=== PATIENT | female | born 1995 | race Caucasian/White ===

== ENCOUNTER 2024-03-31 06:15 | Emergency (ER) | payer OTHER, SELFPAY ==
--- NOTE | ~2024-03-31 | CT_ITS ---
EXAMINATION: CT ABDOMEN PELVIS WITHOUT IV CONTRAST HISTORY: flank pain COMPARISON: There are no prior studies for comparison. TECHNIQUE: CT scan of the abdomen and pelvis was performed without contrast using standard departmental protocol. Coronal and sagittal reformatted images were generated and reviewed. Oral contrast material was not administered per department protocol. This CT exam was performed with one or more of the following dose reduction techniques: automated exposure control, adjustment of the mA and/or kV according to patient size, use of iterative reconstruction technique. DLP: 645 mGy-cm FINDINGS: LOWER CHEST: The visualized lung bases are clear. There is no pleural effusion. CARDIOVASCULATURE: The heart is normal in size. There is no pericardial effusion. LIVER: The liver is normal in size and contour. The liver demonstrates diffusely decreased attenuation, consistent with steatosis. GALLBLADDER / BILE DUCTS: The gallbladder is unremarkable. There is no intra or extrahepatic biliary ductal dilatation. SPLEEN: The spleen is normal in size and has an unremarkable unenhanced appearance. PANCREAS: The pancreas has an unremarkable unenhanced appearance. ADRENAL GLANDS: Unremarkable. KIDNEYS/RETROPERITONEUM: No renal calculi are identified. There is mild right hydroureteronephrosis to the level of a 2 mm UVJ calculus.. LYMPH NODES: No retroperitoneal lymphadenopathy is identified in the abdomen or pelvis. VASCULATURE: The abdominal aorta is normal in caliber. MESENTERY/PERITONEUM: No free fluid. No masses. There is no free intraperitoneal gas. STOMACH: There is a small hiatal hernia. The remainder of the stomach is unremarkable. SMALL BOWEL: The small bowel is normal in caliber. COLON: The colon is unremarkable. APPENDIX: Normal. URINARY BLADDER/PELVIC ORGANS: The urinary bladder is collapsed, limiting evaluation. The uterus and ovaries have an unremarkable unenhanced appearance. BONES / SOFT TISSUES: No suspicious bony or soft tissue abnormalities. CT/CT abdomen pelvis wo IV con IMPRESSION: Mild right hydroureteronephrosis to the level of a 2 mm UVJ calculus. Electronically signed by: Pb Ricci MD 03/31/2024 08:45 AM [facility]
[2024-03-31 06:29] VITALS: BP 135/91; PULSE 86; RESP 18; TEMP 36.8; O2SAT 96; BMI 34.8
--- NOTE | 2024-03-31 06:43 | MHC.EDTECH ---
Patient brought into triage area,labs drawn and sent to lab,pt attempted to give a urine sample but was unable to at this time
[2024-03-31 06:50] LABS: MANUAL DIFF FLAG NO
--- NOTE | 2024-03-31 06:51 | ED_ITS ---
HPI - Female Genitourinary General Chief complaint: Urogenital-Female Stated complaint: kidney stones? Time Seen by Provider: 03/31/24 06:50 Source: patient and family (patient's mother) Mode of arrival: ambulatory Limitations: no limitations History of Present Illness ED Provider: Eliza Martinez PA-C HPI Narrative: Patient is a 28 year old assigned female at with a history of kidney stones presenting to the emergency department today with abdominal pain, nausea, and vomiting. Patient states that she has been having right sided low back and abdominal pain for the last few hours with nausea and vomiting. Patient denies any dizziness, lightheadedness, fever, chills, blurry vision, double vision, loss of vision, chest pain, difficulty breathing, shortness of breath, night sweats, pain with urination, increased urinary frequency, increased urinary urgency, blood in her urine or stool, syncope or a near syncopal episode, recent trauma or falls, bowel incontinence, bladder incontinence, or any other complaints at this time. Related Data Previous Rx's ?Medication ?Instructions ?Recorded naproxen 500 mg tablet 500 mg PO BID 7 days #14 tabs 03/31/24 prednisone 20 mg tablet 20 mg PO DAILY 7 days #7 tabs 03/31/24 tamsulosin 0.4 mg capsule 0.4 mg PO DAILY #7 caps 03/31/24 Allergies Allergy/AdvReac Type Severity Reaction Status Date / Time No Known Allergies Allergy Unverified 03/31/24 06:32 Review of Systems 2 Constitutional: Constitutional: Reports no additional constitutional complaints, Denies chills, Denies fever(s) and Denies night sweats Eyes: Eyes: Reports no additional eye complaints, Denies blurry vision, Denies change in vision, Denies diplopia, Denies eye discharge, Denies loss of vision and Denies eye pain ENT: Denies dizziness Cardiovascular: Cardiovascular: Reports no additional cardiovascular complaints, Denies chest pain, Denies lightheadedness, Denies Loss of Consciousness and Denies dyspnea Respiratory: Respiratory: Reports no additional respiratory complaints and Denies dyspnea Gastrointestinal: Gastrointestinal: Reports no additional gastrointestinal complaints, Reports abdominal pain, Denies melena, Denies hematochezia, Denies change in bowel habits, Denies change in stool character, Reports nausea and Reports vomiting Genitourinary: Genitourinary: Denies hematuria, Denies urinary frequency, Denies dysuria, Denies urinary incontinence, Denies urinary hesitancy and Denies urinary urgency Musculoskeletal: Musculoskeletal: Reports no additional musculoskeletal complaints, Reports back pain, Denies numbness and Denies tingling Neurologic: Denies dizziness, Denies loss of vision, Denies numbness and Denies tingling Psychiatric: Psychiatric: Reports no additional psychiatric complaints Endocrine: Endocrine: Reports no additional endocrine complaints Hematologic/Lymphatic: Hematologic/Lymphatic: Reports no additional hematologic/lymphatic complaints Allergic/Immunologic: Allergic/Immunologic: Reports no additional allergic/immunologic complaints PMFSH Past Medical History Attestation statement: The following information was validated with the patient. (patient's information was validated with the patient's mother) Source: old records reviewed, obtained from family (patient's mother provided additional history and confirmed the history provided by the patient) and nursing notes reviewed Physical Exam 2 Vital Signs: Vital Signs: Last Vital Signs Temp 98.2 F 03/31/24 10:12 Pulse 62 03/31/24 10:12 Resp 18 03/31/24 10:12 BP 128/85 03/31/24 10:12 Pulse Ox 98 03/31/24 10:12 O2 Del Method Room Air 03/31/24 10:12 BMI result Body Mass Index 34.8 Const: General: cooperative, no acute distress, alert and awake Nutritional Appearance: well nourished Orientation/consciousness: patient oriented x3 Limitations: no limitations HEENT: Head: Yes normal to inspection and Yes atraumatic Ears: hearing grossly normal bilaterally and external ears normal General nose exam: Normal external nose present, no nasal discharge noted and no epistaxis Face and sinus: Yes normal facial exam, No abrasion and No laceration Mouth: Normal oral and palatal mucosa present, no drooling and no muffled voice Eyes: General: appearance normal, both eyes and all related structures P eriorbital: periorbital findings normal Eyelids: Yes eyelids normal C onjunctivae: conjunctivae normal Pupils: Equal, round and reactive pupils present EOM: EOMs intact bilaterally Neck: Neck: Yes normal visual inspection, Yes full ROM and Yes no lymphadenopathy Chest: Chest palpation & inspection: normal inspection of the chest Resp: Effort & Inspection: normal respiratory effort and able to speak in complete sentences GI: Inspection: Yes normal to inspection Neuro: General: patient oriented x3 and moves all extremities Cranial nerves: Yes Equal, round and reactive pupils present Cognition (Neuro): n ormal cognition Extrem: General: Yes normal to inspection, Yes full ROM and Yes capillary refill normal Psych: Appearance: grossly normal Mental Status: mental status grossly normal Affect: normal affect Attitude: cooperative Thought process: N ormal thought process present Thought content: Normal thought content present Insight: Good insight present (Psych) Medications Administered Discontinued Medications Generic Name Dose Route Start Last Admin Trade Name Ministerio PRN Reason Stop Dose Admin Sodium Chloride 1,000 mls @ 999 mls/hr 03/31/24 07:30 03/31/24 08:47 Ns IV 03/31/24 08:30 Infused .Q1H1M JAZMÍN Infusion Acetaminophen 1,000 mg in 100 mls @ 400 mls/hr 03/31/24 07:20 03/31/24 08:20 Ofirmev IV 03/31/24 07:34 Infused ONCE ONE Infusion Ketorolac Tromethamine 15 mg 03/31/24 07:20 03/31/24 07:39 Ketorolac Tromethamine 15 Mg/Ml Vial IVPUSH 03/31/24 07:21 15 mg ONCE ONE Administration Medical Decision Making Medical Decision Making [facility] Narrative: Patient is a 28 year old assigned female at with a history of kidney stones presenting to the emergency department today with abdominal pain, nausea, and vomiting. Patient's physical exam was unremarkable. Patient's blood work showed a WBC count of 11.5 but were otherwise unremarkable. Patient's urine showed no acute process. Patient's CT abd/pelvis showed a 2mm stone in the right UVJ with mild hydroureternephrosis. I spoke to the urologist integration analyst, Dr. Wilkinson, who recommended discharge home with flomax, prednisone, and pain control with outpatient follow up. I explained my physical exam findings as well as all test results to the patient and the patient's mother. I answered all questions asked by the patient and the patient's mother. I stressed the importance of the patient taking her medication as directed (either prescribed or as the over the counter packaging recommends). I stressed the importance of the patient following up with her primary care provider and a urologist. I stressed the importance of the patient returning to the emergency department immediately if her symptoms were to worsen or if she were to develop any dizziness, shortness of breath, difficulty breathing, chest pain, blurry vision, loss of vision, nausea, vomiting, abdominal pain, fever, chills, back pain, or any other complaints. Patient verbalized agreement and understanding with this treatment plan and discharge. Differential Diagnosis Differential Diagnoses: The differential diagnosis associated with the presentation includes Kidney stone Obstructing stone UTI Admission/Observation Consideration of admission/observation: Escalation of care including admission/observation considered Patient would have been admitted to the hospital had her work up had any findings where hospital admission was appropriate and her clinical presentation warranted hospital admission. Consult Healthcare Provider Management of the patient was discussed with: Director Of Optimization (spoke to the urologist as noted in the MDM Rationale portion of this note.) Lab Data [facility] Lab Attestation statement: I reviewed the patient's lab results. My interpretation of these results are in the MDM Rationale portion of this note. 03/31/24 06:43 03/31/24 06:43 Labs: Lab Results 03/31/24 03/31/24 Range/Units 06:43 09:13 WBC 11.5 H (4.8-10.8) X10*3/uL RBC 4.59 (4.20-5.50) X10*6/uL Hgb 13.9 (12.0-16.0) g/dl Hct 39.1 (37.0-47.0) % MCV 85.2 (80.0-98.0) fL MCH 30.3 (27.0-33.0) pg MCHC 35.5 H (31.0-35.0) g/dl RDW 12.0 (11.0-16.0) % Plt Count 388 (160-400) X10*3/uL MPV 8.7 L (9.4-12.3) fL Immature Gran % (Auto) 0.3 (0.0-0.4) % Neut % (Auto) 47.3 (45-73) % Lymph % (Auto) 42.7 H (20-40) % [place] % (Auto) 8.5 (2-11) % Eos % (Auto) 0.8 (0-4) % Baso % (Auto) 0.4 (0-2) % Lymph # (Auto) 4.9 (1.2-4.9) X10*3/uL [place] # (Auto) 1.0 (0.1-1.2) X10*3/uL Eos # (Auto) 0.1 (0.0-0.4) X10*3/uL Baso # (Auto) 0.1 (0.0-0.2) X10*3/uL Abs Immat Gran (auto) 0.03 (0.00-0.03) X10*3/uL Absolute Neuts (auto) 5.5 (2.0-8.3) x10*3/uL Absolute Nucleated RBC 0.000 (0.0-0.012) X10*3/uL Nucleated RBC % (auto) 0.0 (0.0-0.2) /100WBC Sodium 140 (135-145) mmol/L Potassium 3.5 (3.3-5.1) mmol/L Chloride 108 (96-108) mmol/L Carbon Dioxide 22 (22-29) mmol/L Anion Gap 14 (12-20) BUN 13 (9-16) mg/dL Creatinine 0.77 (0.5-1.4) mg/dL Estim Creat Clear Calc 110.9 Estimated GFR > 60 Random Glucose 99 (60-115) mg/dL Calcium 9.4 (8.4-10.2) mg/dL Beta HCG, Quant < 2 mIU/mL Urine Color Yellow Urine Appearance Clear Urine pH 7.0 (5.0-9.0) Ur Specific [place] 1.020 (1.005-1.025) Urine Protein Negative (Neg-Trace) mg/dL Urine Glucose (UA) Negative (Negative) mg/dL Urine Ketones Negative (Negative) mg/dL Urine Blood Large (3+) H (Negative) Urine Nitrite Negative (Negative) Ur Leukocyte Esterase Negative (Negative) Urine RBC >20 H (0-2) /HPF Urine WBC 0-5 (0-5) /HPF Ur Squamous Epith Cells 0-2 (0-2) /HPF Urine Bacteria None Seen (None Seen) Hyaline Casts 0-2 (0-2) /LPF Urine Test NEGATIVE (NEGATIVE) Independent Interpretation I performed an independent interpretation of an: CT Scan Interpretation: My interpretation is in agreement with the radiologist's impression of this imaging study. L Report Number: [id number]: Total DLP = 645.00 mGy-cm EXAMINATION: CT ABDOMEN PELVIS WITHOUT IV CONTRAST HISTORY: flank pain COMPARISON: There are no prior studies for comparison. TECHNIQUE: CT scan of the abdomen and pelvis was performed without contrast using standard departmental protocol. Coronal and sagittal reformatted images were generated and reviewed. Oral contrast material was not administered per department protocol. This CT exam was performed with one or more of the following dose reduction techniques: automated exposure control, adjustment of the mA and/or kV according to patient size, use of iterative reconstruction technique. DLP: 645 mGy-cm FINDINGS: LOWER CHEST: The visualized lung bases are clear. There is no pleural effusion. CARDIOVASCULATURE: The heart is normal in size. There is no pericardial effusion. LIVER: The liver is normal in size and contour. The liver demonstrates diffusely decreased attenuation, consistent with steatosis. GALLBLADDER / BILE DUCTS: The gallbladder is unremarkable. There is no intra or extrahepatic biliary ductal dilatation. SPLEEN: The spleen is normal in size and has an unremarkable unenhanced appearance. PANCREAS: The pancreas has an unremarkable unenhanced appearance. ADRENAL GLANDS: Unremarkable. KIDNEYS/RETROPERITONEUM: No renal calculi are identified. There is mild right hydroureteronephrosis to the level of a 2 mm UVJ calculus.. LYMPH NODES: No retroperitoneal lymphadenopathy is identified in the abdomen or pelvis. VASCULATURE: The abdominal aorta is normal in caliber. MESENTERY/PERITONEUM: No free fluid. No masses. There is no free intraperitoneal gas. STOMACH: There is a small hiatal hernia. The remainder of the stomach is unremarkable. SMALL BOWEL: The small bowel is normal in caliber. COLON: The colon is unremarkable. APPENDIX: Normal. URINARY BLADDER/PELVIC ORGANS: The urinary bladder is collapsed, limiting evaluation. The uterus and ovaries have an unremarkable unenhanced appearance. BONES / SOFT TISSUES: No suspicious bony or soft tissue abnormalities. CT/CT abdomen pelvis wo IV con IMPRESSION: Mild right hydroureteronephrosis to the level of a 2 mm UVJ calculus. Electronically signed by: Pb Ricci MD 03/31/2024 08:45 AM EST Dictated By: Pb Ricci MD Signed By: Electronically signed by Pb Ricci MD 03/31/24 0882 Radiology Impression Discussion of test interpretation with radiology: I have reviewed the radiologist's reading. Independent Historian Clinical information obtained from an independent historian. History obtained from or confirmed by: Parent (patient's mother provided additional history and confirmed the history provided by the patient.) Prescription Management I considered prescription management with: Pain Medication (patient prescribed pain medication) Critical Care Time Critical Care Time Critical Care Time: Yes Total Critical Care Time: 35 Attestation: I spent 35 minutes of Critical Care Time with this patient. This does not include time spent on separately reported billable procedures. Discharge Plan Discharge Clinical Impression: Kidney stone Patient Disposition: Home, Self-Care Instructions: Kidney Stones (ED) Additional Instructions: Follow up with your primary care provider and a urologist. Return to the emergency department immediately if your symptoms worsen or if you develop any dizziness, shortness of breath, difficulty breathing, chest pain, blurry vision, loss of vision, nausea, vomiting, abdominal pain, fever, chills, back pain, or any other complaints. Prescriptions: New prednisone 20 mg tablet 20 mg PO DAILY 7 Days Qty: 7 0RF tamsulosin 0.4 mg capsule 0.4 mg PO DAILY Qty: 7 0RF naproxen 500 mg tablet 500 mg PO BID 7 Days Qty: 14 0RF Referrals: [facility] [Provider Group] (Call to establish and follow up with a urologist.) Get Qureshi MD [Primary Care Provider] - Stand Alone Forms: Work/School Release Interventions: ED Discharge Assessment Last Done: 03/31/24 10:12 Discharge Date/Time: 03/31/24 10:13 Print Language: Turkish
[2024-03-31 06:53] LABS: Basophils Absolute Auto 0.1 X10*3/uL (0.0-0.2); Basophils Percent Auto 0.4 % (0-2); Eosinophils Absolute Auto 0.1 X10*3/uL (0.0-0.4); Eosinophils Percent Auto 0.8 % (0-4); Hematocrit 39.1 % (37.0-47.0); Hemoglobin 13.9 g/dl (12.0-16.0); Imm Gran Abs Auto 0.03 X10*3/uL (0.00-0.03); Imm Gran Pct Auto 0.3 % (0.0-0.4); Lymphocytes Absolute Auto 4.9 X10*3/uL (1.2-4.9); Lymphocytes Percent Auto 42.7 % (20-40); Mean Corpuscular HGB Conc 35.5 g/dl (31.0-35.0); Mean Corpuscular Hemoglobin 30.3 pg (27.0-33.0); Mean Corpuscular Volume 85.2 fL (80.0-98.0); Mean Platelet Volume 8.7 fL (9.4-12.3); Monocytes Percent Auto 8.5 % (2-11); Neutrophils Absolute Auto 5.5 x10*3/uL (2.0-8.3); Neutrophils Percent Auto 47.3 % (45-73); Platelet Count 388 X10*3/uL (160-400); Red Blood Count 4.59 X10*6/uL (4.20-5.50); White Blood Count 11.5 X10*3/uL (4.8-10.8)
[2024-03-31 07:03] LABS: Anion Gap 14 (12-20); Blood Urea Nitrogen 13 mg/dL (9-16); Calcium 9.4 mg/dL (8.4-10.2); Carbon Dioxide 22 mmol/L (22-29); Chloride 108 mmol/L (96-108); Creatinine Clr Calc Pharmacy 110.9; Estimated Glomerular Filt Rate > 60; Glucose Random 99 mg/dL (60-115); Potassium 3.5 mmol/L (3.3-5.1); Sodium 140 mmol/L (135-145)
--- NOTE | 2024-03-31 07:20 | MHC.EDTECH ---
Patient attempted to give urine sample. Patient unable to give urine sample at this time.
[2024-03-31] MEDS: 0.9 % Sodium Chloride 1,000 ML 999 ML IV (07:39)
[2024-03-31] MEDS: Acetaminophen 1,000 MG/100 ML PIGGYBACK 400 MG IV (07:39)
[2024-03-31] MEDS: Ketorolac Tromethamine 15 MG/ML VIAL IVPUSH (07:39)
[2024-03-31 07:51] LABS: HCG Quantitative < 2 mIU/mL
[2024-03-31 08:52] VITALS: BP 128/85; PULSE 68; RESP 16; TEMP 36.8; O2SAT 97
[2024-03-31 09:22] LABS: Appearance Urine Clear; Color Urine Yellow; Glucose Urine UA Negative (Negative); Leukocyte Esterase Urine Negative (Negative); Nitrite Urine Negative (Negative); UMIC TRIGGER UACC YES; Urine Blood Large (3+) (Negative); Urine Ketones Negative (Negative); Urine Protein Negative (Neg-Trace)
[2024-03-31 09:25] LABS: Bacteria Urine None Seen (None Seen); Hyaline Casts Urine 0-2 /LPF (0-2); RBC Urine >20 /HPF (0-2); Squamous Epithelial Cell Urine 0-2 /HPF (0-2); UPreg QC Valid YES; Urine Pregnancy NEGATIVE (NEGATIVE); WBC Urine 0-5 /HPF (0-5)
[2024-03-31 10:12] VITALS: BP 128/85; PULSE 62; RESP 18; TEMP 36.8; O2SAT 98
--- OUTSIDE RECORDS SUMMARY | 2024-03-31 10:26 | XMS_ITS | Encounter Summary ---
Author Organization [facility] Address [address] [place] [address] Phone Care Team Providers Care Board Hammer Operator Name Role Phone Harman Delvalle MD Primary Care Provider Encounter Details Date Type Department Care Team (Late st Contact Info) Description 07/18/2010 Conversion Encounter [facility] [address] [place] [address] [place] [address] Social History Tobacco Use Types Packs/Day Years Used Date Smoking Tobacco: Never Assessed Comments Unknown Sex and Gender Information Value Date Recorded Sex Assigned at Not on file Legal Sex Female 6:42 PM EDT Gender Identity Not on file Sexual Orientation Not on file documented as of this encounter Plan of Treatment Not on file documented as of this encounter Visit Diagnoses Not on filedocumented in this encounter Care Teams Board Hammer Operator Relationship Specialty Start Date End Date Harman Delvalle MD [facility] [place] [address] PCP - General Pediatrics 06/08/20 documented as of this encounter
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
--- OUTSIDE RECORDS SUMMARY | 2024-03-31 10:26 | XMS_ITS ---
Author Organization [facility] Address [address] [place] [id number] Care Team Providers Care Full Decator Operator Name Role Phone CYNDIE EID Unavailable [phone] REASON FOR VISIT Pill check Social History Sex Assigned At : Social History Observation Description Sex Assigned At Female Encounters Encounter Location Date Provider Diagnosis [address] [phone] 04/2024 CYNDIE EID Plan Of Treatment No Information Progress Notes * Angela PAYNEDOB:11/1995 (28 yo F)Acc No.[id number]:03/04/2024 Progress Notes Patient:?Nancy PAYNE Provider:KELI EID :1995???Age:28 Y???Sex:Female D ate:03/04/2024 Address:[address] [place], [place] [phone] Subjective: * Chief Complaints: * ???1. Pill check. * Medical History:? Objective: * Vitals:? Assessment: Plan: * Treatment: * Billing Information: * Visit Code:? * Procedure Codes:? * Electronic signature of BEVERLY EID CNM on 03/31/2024 at 10:25 AM EST Sign off status: Pending * Provider:KELI EID Date:?03/04/2024 Generated for Elliot qureshi/Izzy/eTransmitting on:?03/31/2024 10:25 AM EST
--- OUTSIDE RECORDS SUMMARY | 2024-03-31 10:26 | XMS_ITS ---
Author Organization [facility] Address [address] [place] [id number] Care Team Providers Care Lobster Fisherman Name Role Phone SHEEBA SAEZ Unavailable [phone] REASON FOR VISIT Pill check Social History Sex Assigned At : Social History Observation Description Sex Assigned At Female Encounters Encounter Location Date Provider Diagnosis [facility] [address] [place] [address] [place] [phone] 03/15/2024 SHEEBA SAEZ Plan Of Treatment No Information Progress Notes * Angela GAMEZDOB:11/1995 (28 yo F)Acc No.[id number]:03/15/2024 Progress Notes Patient:?Eduarda GAMEZdara osborn Provider:?Sheeba Saez NP :1995???Age:28 Y???Sex:Female D ate:03/15/2024 Address:[address] [place] [phone] Subjective: * Chief Complaints: * ???1. Pill check. * Medical History:? Objective: * Vitals:? Assessment: Plan: * Treatment: * Billing Information: * Visit Code:? * Procedure Codes:? * Electronic signature of JENNIE SAEZ NP on 03/31/2024 at 10:26 AM EST Sign off status: Pending * Provider:Kevon Saez NP Date:? 025 Generated for Timi kiera/Izzy/eTransmitting on:?03/31/2024 10:26 AM EST
--- OUTSIDE RECORDS SUMMARY | 2024-03-31 10:26 | XMS_ITS | Clinical Summary ---
Author Organization [facility] Address [address] [place] [address] Phone Care Team Providers Care Assistant Director Of Security Name Role Phone Harman Delvalle MD Primary Care Provider Immunizations Name Administration Dates Next Due DTaP 5 06/15/2000, 8,05/16/1996,03/14,01/12/1996 HPV, Quadrivalent 02/28/2009,10/25/2008,08/26/19 09 Hep B, ped/adol 05/16/1996,01/12/1996,1995 Hib (PRP-T) 02/13/1997, 7,03/14/1996,01/11 IPV 06/15/2000, 7,03/14/1996,01/11 Influenza, injectable, quadr ivalent, preservative free 01/09/2015 Influenza, injectable, trivalent 12/17/2009 Influenza, injectable, triva lent, preservative free 12/27/2012 MMR 06/15/2000,1996 Meningococcal Conj (Menactra) MCV4P 12/27/2012,0 08/25/2008 Tdap 08/25/2008 Varicella 08/25/2008,1996 Social History Tobacco Use Types Packs/Day Years Used Date Smoking Tobacco: Some Days Comments:Current Some Day Sm oker Comments Unknown Sex and Gender Information Value Date Recorded Sex Assigned at Not on file Legal Sex Female 6:42 PM EDT Gender Identity Not on file Sexual Orientation Not on file Last Filed Vital Signs Vital Sign Reading Time Taken Comments Blood Pressure - - Pulse 76 02/24/2014 10:12 AM EST Temperature 36.9 ??C (98.5 ??F) 01/09/2015 1:37 PM ES T Respiratory Rate - - Oxygen Saturation - - Inhaled Oxygen Concentration - - Weight 70.3 kg (155 lb) 01/09/2015 1:37 PM EST Height 161.9 cm (5' 3.75 ) 01/09/2015 1:37 PM ES T Body Mass Index 26.81 01/09/2015 1:37 PM EST Plan of Treatment Health Maintenance Due Date Last Done Comments DTaP,Tdap,and Td Vaccines (7 - Td or Tdap) 08/25/2018 08/25/2008, 06/15/2000, 05/09/1997, Additional history exists Influenza Vaccines (#1) 2023 01/10/20 15, 12/27/2012, 12/17/2009 COVID-19 Vaccine ( season) 2023 Hepatitis B Vaccines Completed 05/16/1996, 01/12/1996, 1995 HIB Vaccines Completed 02/13/1997, 04/30, 03/14/1996, Additional history exists IPV Vaccines Completed 06/15/2000, 04/30, 03/14/1996, Additional history exists MMR Vaccines Completed 06/15/2000, 1996 Varicella Vaccines Completed 08/25/2008, 1996 HPV Vaccines Completed 02/28/2009, 10/01, 08/25/2008 Meningococcal Vaccine Completed 12/27/2012, 009 Hepatitis A Vaccines Aged Out No long er eligible based on patient's age to complete this topic Men B Vaccine Aged Out No longer elig ible based on patient's age to complete this topic Pneumococcal Vaccine Aged Out No long er eligible based on patient's age to complete this topic Care Teams Assistant Director Of Security Relationship Specialty Start Date End Date Harman Delvalle MD [facility] [address] PCP - General Pediatrics 06/08/20
== END 2024-03-31 10:13 | disposition home or self-care (01) ==
PROVIDERS: Physician Assistant Medical; Emergency Provider Emergency Medicine; PCP Pediatrics
DX: N13.2 Hydronephrosis with renal and ureteral calculous obstruction (principal)
CPT/HCPCS: 36415; 74176; 80048; 81001; 81025; 84702; 85025; 96361; 96374; 96375; 99284; 99285; J0131; J1885

== ENCOUNTER → 2024-03-31 07:20 | Outpatient (BNV) | payer OTHER, SELFPAY | PROVIDERS: Emergency Provider Emergency Medicine; PCP Pediatrics; Visit Provider Radiology Diagnostic Radiology | DX: N13.2 Hydronephrosis with renal and ureteral calculous obstruction (principal) | CPT/HCPCS: 74176 ==

== ENCOUNTER 2024-05-25 15:16 | Outpatient (AMB) | payer OTHER, SELFPAY ==
--- NOTE | 2024-05-25 15:20 | MHC.OFFVIS ---
Intake Visit Reasons: ureteral stone Intake Note: New patient presents today for initial visit for ureteral stone Urology Medication:none Blood Thinner:none Antibiotic Allergies:none Allergies No Known Allergies Allergy (Verified 05/25/24 15:36) Medication List - Last Reconciled 05/25/24 by FABIANO Medrano No Known Home Meds HPI Comments Details: Angela is a very pleasant 28-year-old female patient of Dr. Qureshi. She presents to the office today as a new patient for nephrolithiasis as well as a urinary tract infection. In discussion with the patient today she reports having seeked emergency room care earlier this year for right-sided flank pain she had been experiencing at which time she was told to follow-up with Urology regarding nephrolithiasis. Previous CT results reviewed with the patient today 03/31 mild right hydroureteronephrosis to the level of a 2 mm UVJ calculus. Patient reports pain she had been experiencing has since subsided however earlier last week she had been experiencing UTI like symptoms at which time she went to urgent care and was diagnosed with a urinary tract infection and is currently on cefuroxime. She reports feeling UTI potentially occurred after sexual activity. She discusses her recent intentional weight loss of 80 lb. She denies any previous history of nephrolithiasis and or surgical intervention for nephrolithiasis. She currently denies any bothersome urinary issues. She denies urinary urgency, urinary frequency, incontinence, nocturia, hematuria, dysuria, foul smelling urine, changes to urinary stream, flank pain, fever, and or chills. She is happy with her current voiding parameters. She otherwise offers no other issues or concerns at this time. Patient was informed and verbally consented to the use of an ambient scribe for clinic note documentation during this visit. Discussion Notes I reviewed with the patient the importance of hydration in preventing nephrolithiasis recurrence, suggesting to maintain an output of 2 to 2? liters of urine per day. I emphasized that hydration reduces recurrence, while dietary adjustments can aid but are not paramount given her current fluid intake habits. We discussed no current indication for further diagnostic workup unless recurrent stone symptoms manifest, in which case a metabolic evaluation could follow. For UTIs, I recommended contact for evaluation and treatment adjustments based on activity-related symptoms. I assured her direct access to our services if symptoms recurred, making timely access for management a priority. Review of Systems Const All systems reviewed & are unremarkable except as noted in HPI and below Physical Exam Const General: cooperative, healthy appearing, comfortable, no acute distress, well developed, alert and awake Orientation/consciousness: patient oriented x3 Limitations: no limitations HEENT Head: Yes normal to inspection, Yes normocephalic and Yes atraumatic Ears: hearing grossly normal bilaterally Eyes General: appearance normal, both eyes and all related structures Neck Neck: Yes normal visual inspection and Yes trachea midline Chest Chest palpation & inspection: normal inspection of the chest Resp Effort & Inspection: normal respiratory effort and able to speak in complete sentences Cardio Rate: regular rate GI Inspection: Yes normal to inspection General: Yes no CVA tenderness Back/Spine/Pelvis Back: no CVA tenderness Skin General skin exam: no rashes or lesions noted Neuro General: patient oriented x3 Extrem General: Yes normal to inspection Psych Appearance: grossly normal and well kempt Mental Status: mental status grossly normal Speech and movement: Normal speech and movement present and Clear speech present Affect: normal affect Attitude: cooperative Thought process: Normal thought process present Thought content: Normal thought content present Insight: Fair insight present (Psych) Judgement: Fair judgement present (Psych) Results Reviewed Results Reviewed: Date of Service: 03/31/24 Procedure(s): CT abdomen pelvis wo IV con FINDINGS: LOWER CHEST: The visualized lung bases are clear. There is no pleural effusion. CARDIOVASCULATURE: The heart is normal in size. There is no pericardial effusion. LIVER: The liver is normal in size and contour. The liver demonstrates diffusely decreased attenuation, consistent with steatosis. GALLBLADDER / BILE DUCTS: The gallbladder is unremarkable. There is no intra or extrahepatic biliary ductal dilatation. SPLEEN: The spleen is normal in size and has an unremarkable unenhanced appearance. PANCREAS: The pancreas has an unremarkable unenhanced appearance. ADRENAL GLANDS: Unremarkable. KIDNEYS/RETROPERITONEUM: No renal calculi are identified. There is mild right hydroureteronephrosis to the level of a 2 mm UVJ calculus.. LYMPH NODES: No retroperitoneal lymphadenopathy is identified in the abdomen or pelvis. VASCULATURE: The abdominal aorta is normal in caliber. MESENTERY/PERITONEUM: No free fluid. No masses. There is no free intraperitoneal gas. STOMACH: There is a small hiatal hernia. The remainder of the stomach is unremarkable. SMALL BOWEL: The small bowel is normal in caliber. COLON: The colon is unremarkable. APPENDIX: Normal. URINARY BLADDER/PELVIC ORGANS: The urinary bladder is collapsed, limiting evaluation. The uterus and ovaries have an unremarkable unenhanced appearance. BONES / SOFT TISSUES: No suspicious bony or soft tissue abnormalities. IMPRESSION: Mild right hydroureteronephrosis to the level of a 2 mm UVJ calculus. Assessment & Plan Assessment & Plan (1) Kidney stone: Code(s): N20.0 - Calculus of kidney Category: Medical (2) Urinary tract infection: Code(s): N39.0 - Urinary tract infection, site not specified Category: Medical Plan Unable to obtain urine for urinalysis as patient unable to void. Previous CT results reviewed with the patient today; as noted above. Discussed importance of completing antibiotics as prescribed. We discussed at length potential causes of nephrolithiasis as well as urinary tract infection. We discussed, educated, and stressed the importance of adequate hydration relation to nephrolithiasis as well as urinary tract infections. Will obtain retroperitoneal ultrasound for further assessment evaluation. She currently denies any bothersome urinary issues or concerns. She reports be happy with current voiding parameters. Follow-up in 1-3 months with imaging and PVR; or sooner with any issues, concerns, and or questions. Orders: Orders US retroperitoneal comp Today N20.0 - Calculus of kidney, N39.0 - Urinary tract infection, site not specified Medications: Discontinued naproxen Discontinued Reason: Patient no longer taking 500 mg PO BID 7 days 14 tabs 0RF prednisone Discontinued Reason: Patient no longer taking 20 mg PO DAILY 7 days 7 tabs 0RF tamsulosin Discontinued Reason: Patient no longer taking 0.4 mg PO DAILY 7 caps 0RF Patient Instructions: The patient had an opportunity to ask questions regarding the treatment plan. All questions were answered. Physical exam, labs, and imaging were discussed and reviewed in detail. As well as risks, benefits, and discussion of treatment choices. No major barriers to understanding were identified. The patient expressed understanding and agreement with the above treatment plan. The patient was made aware they should contact our office by phone for worsening of their current condition, the appearance of new symptoms, or with any questions or concerns. Compliance is encouraged with any medications and follow up testing that is ordered. It is a privilege to be allowed the opportunity to participate in? your urological care.? Again, if you have any questions or concerns If you have any questions or concerns please do not hesitate to contact me. The office is [phone]. This note is constructed using voice recognition software. While every effort has been made to ensure accuracy disability insurance claim examiner errors may have been included. Yours sincerely, VICENTE Medrano-CHAPINCITO Coding Level of Care Code New Pt Level 3 (62294) Diagnoses Kidney stone N20.0 Urinary tract infection N39.0
--- OUTSIDE RECORDS SUMMARY | 2024-05-25 18:18 | XMS_ITS | Clinical Summary ---
Author Organization [facility] Address [address] [place] [address] Phone Care Team Providers Care Boiler Shop Supervisor Name Role Phone Harman Delvalle MD Primary Care Provider [phone] Immunizations Immunization Administration Dates Next Due DTaP 5 06/15/2000, [...] age to complete this topic Care Teams Boiler Shop Supervisor Relationship Specialty Start Date End Date Harman Delvalle MD [facility] [place] [address] PCP - General Pediatrics 06/08/20
--- OUTSIDE RECORDS SUMMARY | 2024-05-25 18:18 | XMS_ITS | Encounter Summary ---
Author Organization [facility] Address [address] [place] [address] Phone Care Team Providers Care Ceramic Tile Installer Name Role Phone Harman Delvalle MD Primary Care Provider [phone] Encounter Details Date Type Department Care Team (Late st Contact Info) Description 07/18/2010 Conversion Encounter [facility] [address] [place] [address] [place] [address] Social History Tobacco Use Types Packs/Day Years [...] on filedocumented in this encounter Care Teams Ceramic Tile Installer Relationship Specialty Start Date End Date Harman Delvalle MD [facility] [place] [address] PCP - General Pediatrics 06/08/20 documented as of this encounter
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
--- OUTSIDE RECORDS SUMMARY | 2024-05-25 18:18 | XMS_ITS ---
Author Organization [facility] Address [address] [phone] Care Team Providers Care Recycler Forklift Driver Truck Driver Name Role Phone STANTON CYNDIE Unavailable [phone] Allergies Allergen (clinical drug ingredient) Drug/Non Drug [...] Female Encounters Encounter Location Date Provider Diagnosis [address] [phone] 03/23/2024 CYNDIE EID Encounter for surveillance of [...] patient Ordering medication/ test/proced ures Established Patient: 07425 10 Minutes Plan Of Treatment Medication Medication [...] Notes * Angela GAMEZDOB:11/1995 (28 yo F)Acc No.[id number]:03/23/2024 Patient:?Nancy GAMEZ Provider:?CYNDIE EID :1995???Age:28 Y???Sex:Female D ate:03/23/2024 Address:[address] [place], [place] [phone] Subjective: * Chief Complaints: * ???Pill check [...] changes?Denies.?calf pain?Denies.?abdominal pain?Denies.? * Medical History:? * Education Professional History:? control:?Oral contraceptive pillPreviously : Mirena intrauterine [...] forced or pressured into sexual activities??No ?drugs, care home, safety, other.?No ???Human Trafficking:?Human Trafficking?Experienced:?No ???Tobacco Use:?Tobacco [...] Educating the patient Ordering medication/test/procedures Established Patient: 58381 10 Minutes Plan: * Treatment: * Procedure Codes:? * Follow Up:?1 Year (Reason: P ill check) * Billing Information: * Visit Code:? 69255 Existing - Minimal Complexity (IN USE). * Procedure Codes:? * Sign off status: Completed true * Provider:?CYNDIE EID Date:?03/23/2024 Generated for Elliot qureshi/Izzy/eTransmitting on:?05/25/2024 06:18 PM EDT History and Physical Notes * HPI (History [...]
--- OUTSIDE RECORDS SUMMARY | 2024-05-25 18:18 | XMS_ITS ---
Author Organization [facility] Address [address] [place] [phone] Care Team Providers Care Communication And Outreach Manager Name Role Phone CYNDIE EID Unavailable [phone] REASON FOR VISIT Pill check Social History Sex Assigned At : Social History Observation Description Sex Assigned At Female Encounters Encounter Location Date Provider Diagnosis [address] [phone] 04/2024 CYNDIE EID Plan Of Treatment No Information Progress Notes * Angela PAYNEDOB:11/1995 (28 yo F)Acc No.[id number]:03/04/2024 Progress Notes Patient:?Nancy PAYNE Provider:KELI EID :1995???Age:28 Y???Sex:Female D ate:03/04/2024 Address:[address] [place], [place] [id number] Subjective: * Chief Complaints: * ???1. Pill check. * Medical History:? Objective: * Vitals:? Assessment: Plan: * Treatment: * Billing Information: * Visit Code:? * Procedure Codes:? * Electronic signature of BEVERLY EID CNM on 05/25/2024 at 06:17 PM EDT Sign off status: Pending * Provider:KELI EID Date:?03/04/2024 Generated for Elliot qureshi/Izzy/eTransmitting on:?05/25/2024 06:17 PM EDT
--- OUTSIDE RECORDS SUMMARY | 2024-05-25 18:18 | XMS_ITS ---
Author Organization [facility] Address [address] [place] [phone] Care Team Providers Care Field Crops Harvest Machine Operator Name Role Phone SHEEBA SAEZ Unavailable [phone] REASON FOR VISIT Pill check Social History Sex Assigned At : Social History Observation Description Sex Assigned At Female Encounters Encounter Location Date Provider Diagnosis [facility] [address] [place] [address] [place] [phone] 03/15/2024 SHEEBA SAEZ Plan Of Treatment No Information Progress Notes * Angela GAMEZDOB:11/1995 (28 yo F)Acc No.[id number]:03/15/2024 Progress Notes Patient:?Eduarda GAMEZdara anurag Provider:?Sheeba Saez NP :1995???Age:28 Y???Sex:Female D ate:03/15/2024 Address:[address] [place] [phone] Subjective: * Chief Complaints: * ???1. Pill check. * Medical History:? Objective: * Vitals:? Assessment: Plan: * Treatment: * Billing Information: * Visit Code:? * Procedure Codes:? * Electronic signature of JENNIE SAEZ NP on 05/25/2024 at 06:18 PM EDT Sign off status: Pending * Provider:Kevon Saez NP Date:? 025 Generated for Elliot qureshi/Izzy/eTransmitting on:?05/25/2024 06:18 PM EDT
== END 2024-05-25 15:39 | disposition home or self-care (01) ==
LOC: HO.HUSH 15:16
PROVIDERS: PCP Pediatrics; Visit Provider Nurse Practitioner Family
DX: N20.0 Calculus of kidney (principal); N39.0 Urinary tract infection, site not specified
CPT/HCPCS: 99203

== ENCOUNTER → 2024-05-25 15:16 | Outpatient (BNVA) | payer OTHER, SELFPAY | PROVIDERS: PCP Pediatrics; Visit Provider Nurse Practitioner Family | DX: N20.0 Calculus of kidney (principal); N39.0 Urinary tract infection, site not specified | CPT/HCPCS: 99202 ==

== ENCOUNTER 2024-12-26 14:22 | Outpatient (AMB) | payer OTHER, SELFPAY ==
--- OUTSIDE RECORDS SUMMARY | 2023-07-10 11:00 | XMS_ITS ---
Author Organization [facility] Address [address] [place] [address] Care Team Providers Care Radio Despatcher Name Role Phone DIANE MUSE Unavailable [phone] REASON FOR VISIT Annual Exam Social History Sex Assigned At : Social History Observation Description Sex Assigned At Female Encounters Encounter Location Date Provider Diagnosis [facility] [address] [place], [place] [phone] 07/10/2023 DIANE MUSE Plan Of Treatment No Information Progress Notes * Diane GAMEZDOB:11/1995 (29 yo F)Acc No.[id number]:07/10/2023 Progress Notes Patient: Niurka garcia Diane Provider: Pastora Muse NP :1995 A ge:27 Y S ex:Female Date:07/10/2023 Address:[address] [place] [id number] Subjective: * Chief Complaints: * A nnual Exam * Electronic signature of LEONARDA MUSE NP on 12/26/2024 at 06:01 PM EDT Sign off status: Pending * Provider: Pastora Muse NP Date: 0 07/10/2023 Generated for Timi ng/Fatoneg/eTransmitting on: 06:01 PM EDT
--- OUTSIDE RECORDS SUMMARY | 2023-07-17 11:15 | XMS_ITS ---
Author Organization [facility] Address [address] [place] [address] Care Team Providers Care Lead Web Application Developer Name Role Phone DIANE MUSE Unavailable [phone] REASON FOR VISIT Annual Exam Medications Medication SIG (Take, Route, Frequency, Duration) Notes Start Date End Date Status Norethindrone Active Social History Sex Assigned At : Social History Observation Description Sex Assigned At Female Encounters Encounter Location Date Provider Diagnosis [facility] [address] [place], [place] [phone] 07/17/2023 DIANE MUSE Plan Of Treatment No Information Progress Notes * Diane GAMEZDOB:11/1995 (29 yo F)Acc No.[id number]:07/17/2023 Progress Notes Patient: Eduarda Andersenecca Provider: Pastora Muse NP :1995 A ge:27 Y S ex:Female Date:07/17/2023 Address:[address] [place] [phone] Subjective: * Chief Complaints: * A nnual Exam * Medications: T akingNorethindrone Taking Norethindrone * Electronic signature of LEONARDA MUSE NP on 12/26/2024 at 06:01 PM EDT Sign off status: Pending * Provider: Pastora Muse NP Date: 0 07/17/2023 Generated for Printi ng/Faxing/eTransmitting on: 1 06:01 PM EDT
--- OUTSIDE RECORDS SUMMARY | 2023-08-07 06:45 | XMS_ITS ---
Author Organization [facility] Address [address] [place] [address] Care Team Providers Care Web Services Manager Name Role Phone CYNDIE EID Unavailable [phone] REASON FOR VISIT Annual Exam Social History Sex Assigned At : Social History Observation Description Sex Assigned At Female Encounters Encounter Location Date Provider Diagnosis [facility] [address] [place], [place] [phone] 08/2023 CYNDIE EID Plan Of Treatment No Information Progress Notes * Angela GAMEZDOB:11/1995 (29 yo F)Acc No.[id number]:08/07/2023 Progress Notes Patient: Niurka garcia Angela Provider: Sandra EID :1995 A ge:27 Y S ex:Female Date:08/07/2023 Address:[address] [place] [phone] Subjective: * Chief Complaints: * A nnual Exam Billing Information: * Procedure Codes: * Electronic signature of BEVERLY EID CNM on 12/26/2024 at 06:01 PM EDT Sign off status: Pending * Provider: Sandra EID Date: 0 08/07/2023 Generated for Elliot qureshi/Izzy/eTransmyuniel on: 06:01 PM EDT
--- OUTSIDE RECORDS SUMMARY | 2024-03-04 12:00 | XMS_ITS ---
Author Organization [facility] Address [address] [place] [address] Care Team Providers Care Teacher Asst Name Role Phone CYNDIE EID Unavailable [phone] REASON FOR VISIT Pill check Social History Sex Assigned At : Social History Observation Description Sex Assigned At Female Encounters Encounter Location Date Provider Diagnosis [facility] [address] [place], [place] [phone] 04/2024 CYNDIE EID Plan Of Treatment No Information Progress Notes * Angela GAMEZDOB:11/1995 (29 yo F)Acc No.[id number]:03/04/2024 Progress Notes Patient: dEuarda Andersenecca Provider: Sandra EID :1995 A ge:28 Y S ex:Female Date:03/04/2024 Address:[address] [place] [phone] Subjective: * Chief Complaints: * P ill check * Electronic signature of BEVERLY EID CNM on 12/26/2024 at 06:01 PM EDT Sign off status: Pending * Provider: Sandra EID Date: 0 03/04/2024 Generated for Elliot qureshi/Izzy/Martin on: 06:01 PM EDT
--- OUTSIDE RECORDS SUMMARY | 2024-03-15 11:15 | XMS_ITS ---
Author Organization [facility] Address [address] [place] [address] Care Team Providers Care Brewing Technician Name Role Phone KENIA SAEZ Unavailable [phone] REASON FOR VISIT Pill check Social History Sex Assigned At : Social History Observation Description Sex Assigned At Female Encounters Encounter Location Date Provider Diagnosis [facility] [address] [place] [address] [place], [place] [phone] 03/15/2024 KENIA SAEZ Plan Of Treatment No Information Progress Notes * Angela GAMEZDOB:11/1995 (29 yo F)Acc No.[id number]:03/15/2024 Progress Notes Patient: Angela Andersen Provider: Venkata Saez NP :1995 A ge:28 Y S ex:Female Date:03/15/2024 Address:[address] [place] [phone] Subjective: * Chief Complaints: * P ill check * Electronic signature of JENNIE SAEZ NP on 12/26/2024 at 06:01 PM EDT Sign off status: Pending * Provider: Venkata Saez NP Date: 03/15/2024 Generated for Timi ng/Izzy/eTransmitting on: 06:01 PM EDT
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
[2024-12-26 14:34] VITALS: BP 128/80; PULSE 111; RESP 18; TEMP 37.1; O2SAT 98; BMI 33.1
--- OUTSIDE RECORDS SUMMARY | 2024-12-26 18:01 | XMS_ITS | Clinical Summary ---
Author Organization [facility] Address [address] [place] [address] Phone Care Team Providers Care Electric Motor Assembler Name Role Phone Harman Delvalle MD Primary Care Provider [phone] Immunizations Immunization Administration Dates Next Due DTaP [...] 76 02/24/2014 10:12 AM EST Temperature 36.9 C (98.5 F) 01/09/2015 1:37 PM EST Respiratory Rate - - Oxygen Saturation - [...] 05/09/1997, Additional history exists Influenza Vaccines (#1) 2024 01/10/20 15, 12/27/2012, 12/17/2009 COVID-19 Vaccine ( season) 2024 Hepatitis B Vaccines Completed 05/16/1996, 01/12/1996, 1995 [...] age to complete this topic Care Teams Electric Motor Assembler Relationship Specialty Start Date End Date Harman Delvalle MD [address] [place] [address] [place] [address] PCP - General Pediatrics 06/08/20
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
== END 2024-12-26 15:13 | disposition home or self-care (01) ==
PROVIDERS: PCP Physician Assistant; Visit Provider Physician Assistant
DX: Z00.00 Encounter for general adult medical examination without abnormal findings (principal); R06.83 Snoring; R51.9 Headache, unspecified; K52.9 Noninfective gastroenteritis and colitis, unspecified

== ENCOUNTER → 2024-12-26 14:22 | Outpatient (BNVA) | payer OTHER, SELFPAY | PROVIDERS: Visit Provider Physician Assistant | DX: Z00.01 Encounter for general adult medical examination with abnormal findings (principal); R06.83 Snoring; R51.9 Headache, unspecified; K52.9 Noninfective gastroenteritis and colitis, unspecified; K92.1 Melena; J03.90 Acute tonsillitis, unspecified; N20.0 Calculus of kidney | CPT/HCPCS: 99395 ==

== ENCOUNTER 2025-01-13 13:36 | Outpatient (REF) | payer OTHER, SELFPAY ==
--- OUTSIDE RECORDS SUMMARY | 2023-07-17 10:15 | XMS_ITS ---
Author Organization [facility] Address [address] [place] [address] Care Team Providers Care Telephone Diaphragm Assembler Name Role Phone DIANE MUSE Unavailable [phone] REASON FOR VISIT Annual Exam Medications Medication SIG (Take, Route, Frequency, Duration) Notes Start Date End Date Status Norethindrone Active Social History Sex Assigned At : Social History Observation Description Sex Assigned At Female Encounters Encounter Location Date Provider Diagnosis [facility] [address] [place], [place] [phone] 07/17/2023 DIANE MUSE Plan Of Treatment No Information Progress Notes * Diane GAMEZDOB:11/1995 (29 yo F)Acc No.[id number]:07/17/2023 Progress Notes Patient: Eduarda Andersenecca Provider: Pastora Muse NP :1995 A ge:27 Y S ex:Female Date:07/17/2023 Address:[address] [place] [id number] Subjective: * Chief Complaints: * A nnual Exam * Medications: T akingNorethindrone Taking Norethindrone * Electronic signature of LEONARDA MUSE NP on 01/13/2025 at 07:59 PM EST Sign off status: Pending * Provider: Pastora Muse NP Date: 0 07/17/2023 Generated for Printi ng/Faxing/eTransmitting on: 1 03/15/2024 07:59 PM EST
--- OUTSIDE RECORDS SUMMARY | 2023-08-07 05:45 | XMS_ITS ---
Author Organization [facility] Address [address] [place] [address] Care Team Providers Care Heel Brusher Name Role Phone CYNDIE EID Unavailable [phone] REASON FOR VISIT Annual Exam Social History Sex Assigned At : Social History Observation Description Sex Assigned At Female Encounters Encounter Location Date Provider Diagnosis [facility] [address] [place], [place] [phone] 08/2023 CYNDIE EID Plan Of Treatment No Information Progress Notes * Angela GAMEZDOB:11/1995 (29 yo F)Acc No.[id number]:08/07/2023 Progress Notes Patient: Niurka garcia Angela Provider: Sandra EID :1995 A ge:27 Y S ex:Female Date:08/07/2023 Address:[address] [place] [phone] Subjective: * Chief Complaints: * A nnual Exam Billing Information: * Procedure Codes: * Electronic signature of BEVERLY EID CNM on 01/13/2025 at 07:59 PM EST Sign off status: Pending * Provider: Sandra EID Date: 08/07/2023 Generated for Elliot qureshi/Izzy/Martin on: 03/15/2024 07:59 PM EST
--- OUTSIDE RECORDS SUMMARY | 2024-03-04 11:00 | XMS_ITS ---
Author Organization [facility] Address [address] [place] [address] Care Team Providers Care Fine Dining Server Name Role Phone CYNDIE EID Unavailable [phone] REASON FOR VISIT Pill check Social History Sex Assigned At : Social History Observation Description Sex Assigned At Female Encounters Encounter Location Date Provider Diagnosis [facility] [address] [place], [place] [phone] 04/2024 CYNDIE EID Plan Of Treatment No Information Progress Notes * Angela GAMEZDOB:11/1995 (29 yo F)Acc No.[id number]:03/04/2024 Progress Notes Patient: Eduarda Andersenecca Provider: Sandra EID :1995 A ge:28 Y S ex:Female Date:03/04/2024 Address:[address] [place] [phone] Subjective: * Chief Complaints: * P ill check * Electronic signature of BEVERLY EID CNM on 01/13/2025 at 07:59 PM EST Sign off status: Pending * Provider: Sandra EID Date: 0 03/04/2024 Generated for Elliot qureshi/Izzy/Ascencionitting on: 03/15/2024 07:59 PM EST
--- OUTSIDE RECORDS SUMMARY | 2024-03-15 10:15 | XMS_ITS ---
Author Organization [facility] Address [address] [place] [address] Care Team Providers Care Ping Pong Table Assembler Name Role Phone KENIA SAEZ Unavailable [phone] REASON FOR VISIT Pill check Social History Sex Assigned At : Social History Observation Description Sex Assigned At Female Encounters Encounter Location Date Provider Diagnosis [facility] [address] [place] [address] [place] [phone] 03/15/2024 KENIA SAEZ Plan Of Treatment No Information Progress Notes * Angela GAMEZDOB:11/1995 (29 yo F)Acc No.[id number]:03/15/2024 Progress Notes Patient: Angela Andersen Provider: Venkata Saez NP :1995 A ge:28 Y S ex:Female Date:03/15/2024 Address:[address] [place] [phone] Subjective: * Chief Complaints: * P ill check * Electronic signature of JENNIE SAEZ NP on 01/13/2025 at 07:59 PM EST Sign off status: Pending * Provider: Venkata Saez NP Date: 03/15/2024 Generated for Printi ng/Izzy/eTransmitting on: 03/15/2024 07:59 PM EST
[2025-01-13 13:50] LABS: MANUAL DIFF FLAG NO
[2025-01-13 14:37] LABS: Hematocrit 39.3 % (37.0-47.0); Hemoglobin 13.4 g/dl (12.0-16.0); Imm Gran Abs Auto 0.02 X10*3/uL (0.00-0.03); Imm Gran Pct Auto 0.2 % (0.0-0.4); Lymphocytes Absolute Auto 4.4 X10*3/uL (1.2-4.9); Mean Corpuscular HGB Conc 34.1 g/dl (31.0-35.0); Mean Corpuscular Hemoglobin 30.0 pg (27.0-33.0); Mean Corpuscular Volume 87.9 fL (80.0-98.0); NRBC Abs Auto 0.000 X10*3/uL (0.0-0.012); NRBC Pct Auto 0.0 /100WBC (0.0-0.2); Platelet Count 352 X10*3/uL (160-400); Red Blood Count 4.47 X10*6/uL (4.20-5.50); White Blood Count 10.2 X10*3/uL (4.8-10.8)
[2025-01-13 14:43] LABS: INTERNATIONAL NORM RATIO 1.0 (0.9-1.1); Prothrombin Time 12.3 SEC (11.2-13.5)
[2025-01-13 14:46] LABS: Partial Thromboplastin Time 29.0 SEC (26.7-34.1)
[2025-01-13 15:08] LABS: Alanine Aminotransferase 17 U/L (0-31); Albumin Level 4.8 g/dL (3.5-5.0); Alkaline Phosphatase 56 U/L (39-117); Anion Gap 12 (12-20); Aspartate Amino Transferase 19 U/L (5-31); Blood Urea Nitrogen 12 mg/dL (9-16); Calcium 9.4 mg/dL (8.4-10.2); Carbon Dioxide 24 mmol/L (22-29); Chloride 109 mmol/L (96-108); Cholesterol 251 mg/dL (<200); Estimated Glomerular Filt Rate > 60; HDL Cholesterol 42 mg/dL (>40); Iron 107 mcg/dL (30-160); Percent Iron Saturation 33 % (15-50); Potassium 3.5 mmol/L (3.3-5.1); Sodium 141 mmol/L (135-145); Total Iron Binding Capacity 325 mcg/dL (228-428); Total Protein 7.8 g/dL (6.5-8.0); Triglycerides 100 mg/dL (<150); Unsaturated Iron Binding 218 ug/dL
[2025-01-13 16:01] LABS: Free T4 (Free Thyroxine) 0.99 ng/dL (0.71-1.85)
--- OUTSIDE RECORDS SUMMARY | 2025-01-13 19:59 | XMS_ITS | Clinical Summary ---
Author Organization [facility] Address [address] [place] [address] Phone Care Team Providers Care Quality Audit Representative Name Role Phone Harman Delvalle MD Primary Care Provider [phone] Immunizations Immunization Administration Dates Next Due DTaP [...] age to complete this topic Care Teams Quality Audit Representative Relationship Specialty Start Date End Date Harman Delvalle MD [address] [place] [address] [place] [address] PCP - General Pediatrics 06/08/20
--- OUTSIDE RECORDS SUMMARY | 2025-01-13 20:00 | XMS_ITS | Encounter Summary ---
Author Organization [facility] Address [address] [place] [address] Phone Care Team Providers Care Supervisor Dials Name Role Phone Harman Delvalle MD Primary Care Provider [phone] Encounter Details Date Type Department Care Team (Late st Contact Info) Description 07/18/2010 Conversion Encounter [facility] [address] [place] [address] [place] [address] Social History Tobacco Use Types Packs/Day Years [...] on filedocumented in this encounter Care Teams Supervisor Dials Relationship Specialty Start Date End Date Harman Delvalle MD [facility] [place] [address] PCP - General Pediatrics 06/08/20 documented as of this encounter
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
== END 2025-01-13 13:37 | disposition home or self-care (01) ==
LOC: HO.LAB 13:36
PROVIDERS: PCP Physician Assistant; Visit Provider Physician Assistant
DX: Z00.00 Encounter for general adult medical examination without abnormal findings (principal); K06.8 Other specified disorders of gingiva and edentulous alveolar ridge
CPT/HCPCS: 36415; 80048; 80061; 80076; 82306; 83036; 83540; 84439; 84443; 85025; 85610; 85730

== ENCOUNTER → 2025-02-09 09:21 | Outpatient (REF) | payer OTHER, SELFPAY | LOC: HO.SL 09:21 | PROVIDERS: PCP Physician Assistant; Visit Provider Physician Assistant | DX: R06.83 Snoring (principal); G47.30 Sleep apnea, unspecified | CPT/HCPCS: 95806 ==

== ENCOUNTER → 2025-02-12 09:34 | Outpatient (BNV) | payer OTHER, SELFPAY | PROVIDERS: PCP Physician Assistant; Visit Provider Psychiatry & Neurology Neurology | DX: G47.33 Obstructive sleep apnea (adult) (pediatric) (principal); R06.83 Snoring | CPT/HCPCS: 95806 ==